=== PATIENT | male | born 1990 ===

== ENCOUNTER 2017-02-22 14:26 | Emergency (ER) | payer BC ==
[2017-02-22 14:45] VITALS: BP 122/75; PULSE 97; RESP 18; O2SAT 99
--- NOTE | 2017-02-22 15:42 | RAD ---
HISTORY: cough COMPARISON: Chest x-ray performed 04/01/16 TECHNIQUE: Chest PA and lateral FINDINGS: LUNGS: No focal consolidation. Please note that chest x-ray has limited sensitivity for the detection of pulmonary masses. PLEURA: No significant pleural effusion identified. No definite pneumothorax . CARDIOVASCULAR: The cardiomediastinal silhouette appears within normal limits of size. OSSEOUS STRUCTURES: No acute osseous abnormality identified. VISUALIZED UPPER ABDOMEN: Unremarkable. OTHER FINDINGS: None. IMPRESSION: No focal consolidation, significant pleural effusion, or definite pneumothorax identified.
[2017-02-22 15:49] LABS: BASO % 0.2 % (0.0-2.0); EOS # 0.1 K/uL (0.0-0.7); EOS % 1.7 % (0.0-4.0); HEMATOCRIT 45.4 % (35.0-51.0); LYMPH # 0.7 K/uL (1.0-4.3); MEAN CELL VOLUME 86.2 fl (80.0-94.0); MEAN CORPUSCULAR HEMOGLOBIN 29.9 pg (27.0-31.0); MEAN CORPUSCULAR HGB CONC 34.7 g/dL (33.0-37.0); MEAN PLATELET VOLUME 8.6 fl (7.2-11.7); MONO # 0.6 K/uL (0.0-0.8); MONO % 8.2 % (0.0-10.0); NEUT # 6.3 K/uL (1.8-7.0); NEUT % 80.9 % (50.0-75.0); PLATELET COUNT 191 K/uL (130-400); RED CELL DISTRIBUTION WIDTH 13.3 % (11.5-14.5); WHITE BLOOD COUNT 7.8 K/uL (4.8-10.8)
--- NOTE | 2017-02-22 15:50 | ED PDOC ---
HPI: General Adult Time Seen by Provider: 02/22/17 15:44 Chief Complaint (Nursing): Flu-like Symptoms Chief Complaint (Provider): Flu-like symptoms History Per: Patient History/Exam Limitations: no limitations Onset/Duration Of Symptoms: Days (x1) Additional Complaint(s): Esdras Seals, 26 year old male presents to the ED on 02/22/17, with cough, congestion, and weakness developing 1 day prior to arrival. He also states that last year he was diagnosed with Pneumonia and required hospitalization for 4 days. He was last seen by his PMD today and was given Albuterol treatments which provided good relief. He was instructed to come to the ED for further evaluation. The patient denies any chest pain, shortness of breath, recent travel, nausea, vomiting, diarrhea, hemoptysis. Of note, the patient came in contact last week with a friend who had Strep Throat. PMD: Thomas Woodruff MD Past Medical History Reviewed: Historical Data, Nursing Documentation, Vital Signs Vital Signs: Last Vital Signs Temp 100.1 F H 02/22/17 14:41 Pulse 97 H 02/22/17 14:41 Resp 18 02/22/17 14:41 BP 122/75 02/22/17 14:41 Pulse Ox 99 02/22/17 15:54 - Medical History PMH: Asthma (youth), Pneumonia Denies: Chronic Kidney Disease - Surgical History Surgical History: Appendectomy - Family History Family History: States: Unknown Family Hx - Home Medications Home Medications: Ambulatory Orders Medication Instructions Recorded Albuterol HFA [Ventolin HFA 90 2 puff IH [id number] PRN #60 puff 02/22/17 mcg/actuation (8 g)] Azithromycin [Zithromax] 250 mg PO DAILY #6 tab 02/22/17 Promethazine DM [Phenergan DM 5 - 10 ml PO Q8 PRN #120 ml 02/22/17 Syrup] - Allergies Allergies/Adverse Reactions: Allergies Allergy/AdvReac Type Severity Reaction Status Date / Time apricot Allergy ANAPHYLAXIS Verified 03/31/16 14:41 cyclobenzaprine Allergy ANAPHYLAXIS Verified 02/22/17 14:45 [From Flexeril] hazelnut Allergy ANAPHYLAXIS Verified 03/31/16 14:41 ibuprofen [From Motrin] Allergy ANAPHYLAXIS Verified 02/22/17 14:45 Review of Systems Constitutional: Positive for: Weakness. Negative for: Other (no recent travel) ENT: Positive for: Nose Congestion Cardiovascular: Negative for: Chest Pain Respiratory: Positive for: Cough. Negative for: Shortness of Breath, Hemoptysis Gastrointestinal: Negative for: Nausea, Vomiting, Diarrhea Physical Exam - Reviewed Nursing Documentation Reviewed: Yes Vital Signs Reviewed: Yes - Physical Exam Appears: Positive for: Non-toxic, No Acute Distress Head Exam: Positive for: ATRAUMATIC, NORMOCEPHALIC Skin: Positive for: Normal Color, Warm, Dry Eye Exam: Positive for: Normal appearance ENT: Positive for: Normal ENT Inspection, TM Is/Are (no erythema). Negative for : Pharyngeal Erythema, Other (no tonsillar erythema) Neck: Positive for: Normal Cardiovascular/Chest: Positive for: Regular Rate, Rhythm, Chest Non Tender Respiratory: Positive for: Rales (right sided rales). Negative for: Decreased Breath Sounds, Accessory Muscle Use, Wheezing, Respiratory Distress Gastrointestinal/Abdominal: Positive for: Soft. Negative for: Tenderness Extremity: Positive for: Normal ROM Neurologic/Psych: Positive for: Alert, Oriented (x3) - Laboratory Results Result Diagrams: 02/22/17 15:40 02/22/17 15:40 - ECG O2 Sat by Pulse Oximetry: 99 (RA) Pulse Ox Interpretation: Normal - Radiology X-Ray: Interpreted by Me (CXR) X-Ray Interpretation: No Acute Disease - Progress ED Course And Treament: Case d/w Dr. Woodruff and arrangements made for outpt. f/u tomorrow. Pt. informed of plan and states he will f/u with Dr. Woodruff. Re-evaluation Time: 17:17 (Denies SOB, wheezing. ) Condition: Re-examined, Improved Medical Decision Making Medical Decision Makin:44 Initial Impression: Flu-like Symptoms Initial Plan: * COMP Metabolic Panel Stat * CBC (with Differential) Stat * CXR (PA & LAT) [Chest Two Views (PA/LAT) [RAD] Stat * Blood Culture Stat * IV Insertion (Saline Lock) Once * Influenza A B Stat * Rapid Strep Group A Antigen Stat * Reevaluation Scribe Attestation: Documented by Lauren Petersen, acting as a scribe for Carlo Pena PA-C. Provider Scribe Attestation: All medical record entries made by the Scribe were at my direction and personally dictated by me. I have reviewed the chart and agree that the record accurately reflects my personal performance of the history, physical exam, medical decision making, and the department course for this patient. I have also personally directed, reviewed, and agree with the discharge instructions and disposition Disposition - Clinical Impression Clinical Impression: Fever, Upper respiratory infection - Patient ED Disposition Is Patient to be Admitted: No - Disposition Referrals: Thomas Woodruff MD [Staff Provider] - Disposition: Routine/Home Disposition Time: 17:18 Condition: STABLE Prescriptions: Albuterol HFA [Ventolin HFA 90 mcg/actuation (8 g)] 2 puff IH [id number] PRN #60 puff PRN Reason: Cough Azithromycin [Zithromax] 250 mg PO DAILY #6 tab Promethazine DM [Phenergan DM Syrup] 5 - 10 ml PO Q8 PRN #120 ml PRN Reason: Cough Instructions: Upper Respiratory Infection (ED) Forms: [facility] ED School/Work Excuse
[2017-02-22 16:11] LABS: ALB/GLOB RATIO 1.7 (1.0-2.1); ALKALINE PHOSPHATASE 90 U/L (38-126); ALT/SGPT 34 U/L (21-72); AST/SGOT 34 U/L (17-59); BILIRUBIN,TOTAL 0.6 mg/dl (0.2-1.3); BLOOD UREA NITROGEN 9 mg/dl (9-20); CARBON DIOXIDE 29 mmol/L (22-30); CHLORIDE 101 mmol/L (98-107); GFR AFRICAN-AMERICAN > 60; GLUCOSE,RANDOM 104 mg/dL (75-110); POTASSIUM 4.6 MMOL/L (3.6-5.0); SODIUM 143 mmol/l (132-148); TOTAL PROTEIN 8.2 G/DL (6.3-8.2)
[2017-02-22] MEDS ORDERED: Sodium Chloride 0.9% 1,000 ML IV STA (16:35)
[2017-02-22 17:19] LABS: EOSINOPHIL 2 % (0-7); NEUTROPHIL 78 % (42-75); TOTAL CELLS COUNTED 100
[2017-02-22 17:54] VITALS: TEMP 99.8
== END 2017-02-22 17:59 | disposition home or self-care (01) ==
LOC: H.ER 14:26
DX: J06.9 Acute upper respiratory infection, unspecified (principal); R50.9 Fever, unspecified
CPT/HCPCS: 71020; 80053; 85025; 87040; 87070; 87430; 87804; 96360; 99282; J7040

== ENCOUNTER 2019-01-04 12:51 | Emergency (ER) | payer BC, MEDICAID ==
[2019-01-04 13:09] VITALS: BP 138/85; PULSE 84; RESP 18; TEMP 100.6; O2SAT 97
--- NOTE | 2019-01-04 13:26 | ED PDOC ---
History of Present Illness History of Present Illness: 28 year old male with no significant medical history presents to the ED for evaluation of flu like symptoms for two days. Patient reports an occasionally productive cough, body aches and a low grade fever with a Tmax of 100 degrees F. He is eating and drinking without difficulty. Patient offers no other complaints at this time. PMD: Marydel HPI: Influenza Time Seen by Provider: 01/04/19 13:11 Chief Complaint: Flu-like Symptoms Chief Complaint (Provider): Flu-like Symptoms History Per: Patient Exam Limitations: no limitations Onset/Duration Of Symptoms: Days (x 2) Symptoms include: fever, bodyaches, cough Past Medical History Reviewed: Historical Data, Nursing Documentation, Vital Signs Vital Signs: Last Vital Signs Temp 100.6 F H 01/04/19 13:08 Pulse 84 01/04/19 13:08 Resp 18 01/04/19 13:08 BP 138/85 01/04/19 13:08 Pulse Ox 97 01/04/19 13:08 - Medical History PMH: Asthma (youth), Pneumonia Denies: Chronic Kidney Disease - Surgical History Surgical History: Appendectomy - Family History Family History: States: Unknown Family Hx - Home Medications Home Medications: Ambulatory Orders Medication Instructions Recorded Albuterol HFA [Ventolin HFA 90 2 puff IH [id number] PRN #60 puff 02/22/17 mcg/actuation (8 g)] Azithromycin [Zithromax] 250 mg PO DAILY #6 tab 02/22/17 Promethazine DM [Phenergan DM 5 - 10 ml PO Q8 PRN #120 ml 02/22/17 Syrup] - Allergies Allergies/Adverse Reactions: Allergies Allergy/AdvReac Type Severity Reaction Status Date / Time apricot Allergy ANAPHYLAXIS Verified 01/04/19 13:06 cyclobenzaprine Allergy ANAPHYLAXIS Verified 01/04/19 13:06 [From Flexeril] hazelnut Allergy ANAPHYLAXIS Verified 01/04/19 13:06 Review of Systems ROS Statement: Except As Marked, All Systems Reviewed And Found Negative Constitutional: Positive for: Fever (low grade; tmax 100), Other (body aches) Respiratory: Positive for: Cough (occasional productive) Physical Exam - Reviewed Nursing Documentation Reviewed: Yes Vital Signs Reviewed: Yes - Physical Exam Appears: Positive for: No Acute Distress Head Exam: Positive for: ATRAUMATIC, NORMAL INSPECTION, NORMOCEPHALIC Skin: Positive for: Normal Color, Warm, Dry. Negative for: Rash Eye Exam: Positive for: EOMI, Normal appearance, PERRL ENT: Positive for: Normal ENT Inspection, TM Is/Are (normal). Negative for: Nasal Congestion, Pharyngeal Erythema Neck: Positive for: Normal, Painless ROM, Supple Cardiovascular/Chest: Positive for: Regular Rate, Rhythm. Negative for: Murmur Respiratory: Positive for: Normal Breath Sounds. Negative for: Respiratory Distress Gastrointestinal/Abdominal: Positive for: Normal Exam, Soft. Negative for: Tenderness Extremity: Positive for: Normal ROM (upper and lower extremities). Negative for: Deformity Neurological/Psych: Positive for: Awake, Alert, Normal Tone, Oriented. Negative for: Motor/Sensory Deficits Medical Decision Making Medical Decision Makin:20 MDM: Patient with flu like symptoms. Fever of 100.6 degrees F in ED. --CXR --Motrin 600 mg PO --Influenza AB Pt. well appearing, nontoxic, lungs clear. History and exam c/w viral URI, flu neg. CXR: napd; as read by me Scribe Attestation: Documented by Nadia Cornell acting as a scribe for Madeline Knutson PA-C. Provider Scribe Attestation: All medical record entries made by the Scribe were at my direction and personally dictated by me. I have reviewed the chart and agree that the record accurately reflects my personal performance of the history, physical exam, medical decision making, and the department course for this patient. I have also personally directed, reviewed, and agree with the discharge instructions and disposition. - ECG O2 Sat by Pulse Oximetry: 97 Disposition - Clinical Impression Clinical Impression: Influenza-like symptoms - Patient ED Disposition Is Patient to be Admitted: No Counseled Patient/Family Regarding: Studies Performed, Diagnosis, Need For Followup - Disposition Disposition: Routine/Home Disposition Time: 14:45 Condition: STABLE Additional Instructions: rest, increase fluids. motrin or tylenol as needed for bodyaches, fever. Instructions: Viral Upper Respiratory Infection, Adult (DC) Forms: [facility] (Spanish), [facility] ED School/Work Excuse
--- NOTE | 2019-01-04 14:01 | RAD ---
Date of service: 01/04/2019 HISTORY: cough COMPARISON: Comparison made with chest radiograph dated 02/22/2017 TECHNIQUE: Chest PA and lateral FINDINGS: LUNGS: Suspect minimal bibasilar atelectasis slight elevation right hemidiaphragm possibly due to eventration. PLEURA: No significant pleural effusion identified. No pneumothorax apparent. CARDIOVASCULAR: No aortic atherosclerotic calcification present. Normal cardiac size. No pulmonary vascular congestion. OSSEOUS STRUCTURES: No significant abnormalities. VISUALIZED UPPER ABDOMEN: Normal. OTHER FINDINGS: None. IMPRESSION: No acute consolidation however there appears to be some minimal bibasilar atelectasis. Slight elevation of the hemidiaphragm possibly due to eventration.
== END 2019-01-04 15:00 | disposition home or self-care (01) ==
LOC: H.ER 12:51
DX: J11.1 Influenza due to unidentified influenza virus with other respiratory manifestations (principal)